=== PATIENT | female | born 1955 | race Caucasian/White ===

== ENCOUNTER 2019-01-07 11:46 | Day surgery (SDC) | payer BC ==
[2019-01-06 14:12] VITALS: BMI 20.8
[2019-01-07] MEDS ORDERED: LIDOCAINE HCL 1%, 10 MG/ML (20ML VIAL) ONE (14:06)
[2019-01-07] MEDS ORDERED: EPINEPHrine/PF 1 MG/1 ML (1:1,000) AMPULE ONE (14:06)
[2019-01-07] MEDS ORDERED: LIDOCAINE HCL/PF 2% SDV 5ML VIAL ONE (14:21)
[2019-01-07] MEDS ORDERED: fentaNYL CITRATE 250 MCG/5 ML VIAL ONE (14:21)
[2019-01-07] MEDS ORDERED: ceFAZolin SODIUM 1 GM VIAL ONE ×2 (14:21→14:46)
[2019-01-07] MEDS ORDERED: MIDAZOLAM HCL 2 MG/2 ML SINGLE DOSE VIAL ONE ×2 (14:23)
[2019-01-07] MEDS ORDERED: PROPOFOL 20 ML ONE ×2 (14:23)
[2019-01-07] MEDS ORDERED: ceFAZolin SODIUM 1 GM VIAL IVPB ONE (14:43)
[2019-01-07] MEDS ORDERED: LIDOCAINE 1%/EPI 1:100000 (20 ML MULTI DOSE VIAL) IJ ONE (14:45)
[2019-01-07] MEDS ORDERED: DEXAMETHASONE SOD PHOSPHATE 4 MG/1 ML VIAL ONE (15:08)
[2019-01-07] MEDS ORDERED: PHENYLEPHRINE HCL 10 MG/1 ML SINGLE DOSE VIAL ONE (15:52)
[2019-01-07] MEDS ORDERED: oxyCODONE HCL 5 MG TABLET PO PRN (16:18)
[2019-01-07] MEDS ORDERED: ONDANSETRON 4 MG/2 ML VIAL IVPUSH PRN (16:18)
--- NOTE | 2019-01-07 16:24 | OP ---
Operative Note - Note: Operative Date: 01/07/19 Pre-Operative Diagnosis: Acquired cheast wall deformity. Mechanical complication of breast implants. Assymettry of breast Operation: Bilateral reconstruction with other technique. SCT transfer to both breasts. Capsulotomy bilaterally implant exchange Implants: Sientra 590 and 620 Post-Operative Diagnosis: Same as Pre-op Surgeon: Dean Thomas [employer] To Door Sales Representative: Gab Rockwell Anesthesia: General Specimens Removed: bilateral breast implants Estimated Blood Loss (mls): 30
--- NOTE | 2019-01-07 16:26 | SURG ---
Surgery Schedule Checker Note Schedule Checker: Gab Rockwell PA-C Date of Service: 01/07/19 Diagnosis: Acquired cheast wall deformity. Mechanical complication of breast implants. Assymettry of breast Procedure: Bilateral reconstruction with other technique. SCT transfer to both breasts. Capsulotomy bilaterally implant exchange I was present for the entirety of the operative procedure. For further detail, please refer to operative report. Visit type - Case Type Case Type: Scheduled - New patient This patient is new to me today: Yes Date on this admission: 01/07/19
[2019-01-07] MEDS ORDERED: LACTATED RINGERS SOLUTION 1,000 ML IV SCH (16:30)
[2019-01-07] MEDS ORDERED: MEPERIDINE HCL 50 MG/ML VIAL IVPUSH ONE (16:45)
[2019-01-07 18:54] VITALS: BP 95/57; PULSE 78; TEMP 97.8
--- NOTE | 2019-01-08 16:07 | OP ---
DATE OF OPERATION: 01/07/2019 SURGEON: Aimee Thomas MD ACUTE SPECIALIST SURGEON: MACK Yip PREOPERATIVE DIAGNOSES: 1. Bilateral acquired chest wall deformities status post bilateral mastectomy. 2. Asymmetry of reconstructed chest wall. 3. Mechanical complication of breast implant. OPERATIVE PROCEDURE: 1. Right breast reconstruction utilizing other technique. 2. Left breast reconstruction utilizing other technique. 3. Capsulotomy, removal, and replacement of right breast implant. 4. Capsulotomy, removal, and replacement of left breast implant. 5. Revision reconstruction of bilateral axillary breasts. OPERATIVE INDICATION: Patient is a 63-year-old white female who was brought to the operating room for the above procedures. The patient had preoperative discussions on multiple occasions preoperatively about the procedure, risks and benefits, surgical versus nonsurgical alternatives, as well as the material complications of the procedure were discussed on multiple occasions, including today in the holding area where she was marked in a standing position with outline of each procedure which was performed, and she agreed to the planned procedure. OPERATIVE PROCEDURE IN DETAIL: Patient was taken to the operating room, and adequate induction of general anesthesia in supine position, both arms were extended and padded, Venodyne boots were placed, and attention was turned to the chest wall and abdomen. These were prepped and draped in the usual fashion for breast and reconstructive surgery. Once this was complete and timeout was called, the incisions for the mastectomy scars were injected with 1% local lidocaine anesthesia with 1:100,000 epinephrine. After allowing topical anesthesia and hemostasis, attention was turned to the incisions. A right breast incision was made in the previous mastectomy scar down through skin to the subcutaneous tissue, through the subcutaneous tissue down to the underlying capsule. I then performed a capsulotomy by incising the capsule along the course of the incision and removed the breast implant which had been present for approximately 12 years from her previous mastectomy. The implant was sent for pathologic diagnosis. The exact same procedure was carried out symmetrically on the left breast, also removing the implant and sending it for pathologic diagnosis. Once this was accomplished, attention was turned to the lower abdomen and flanks. Incisions were planned in the left and right side symmetrically and incised after topical anesthesia and hemostasis, with an incision down through the skin, through subcutaneous tissue, down to the deep underlying fascia of the rectus abdominis and oblique fascia. Tissue was then dissected from the abdominal wall and deep course of the incisions, transferred to the back table, washed, cleansed, and prepared for reconstruction. Attention was then turned back to the chest wall. The upper outer quadrant of the breast showed axillary remnants of breast tissue. An incision was made in the axillary area and carried down through the subcutaneous tissue down to underlying pectoralis major muscle. This tissue was then resected from the right and left sides, with the left side having more tissue than the right. This tissue was removed and the wounds closed with interrupted sutures and compression. Attention was then turned back to the incisions and scars. At this point an implant was chosen for the reconstruction. A Sientra style 107, 590-mL implant was placed into the left breast pocket because of asymmetry which required less volume than the right. This was placed using Thomason funnel. The left breast implant was a 620-mL high-profile Sientra style 107 implant which showed good symmetry once it was placed. These wounds were copiously irrigated with triple antibiotic solution and then closed with running 3-0 PDS suture on the deep portion of the capsule. The left breast inframammary fold capsule was elevated approximately 1.5 cm to raise the inframammary fold for symmetry. This malposition was corrected by capsulorrhaphy and replacement of the new inframammary fold. Good shape and contour was seen in the sitting position. Tissue was then transferred to the right and left breasts in the superior, medial, central, and lateral portions of each breast. This was carried out independently of each other and showed good shape and contour with correction of the defects in the subcutaneous plane. At this point, after copious irrigation, the wounds were closed in layers using 3-0 PDS suture on the deep dermis and a subcuticular suture with 4-0 Biosyn placed on each breast. All wounds were dressed sterilely after the donor site was closed with interrupted and running sutures with a Dermabond, Steri-Strip, and a compressive dressing. She was awakened, extubated, and transferred to the recovery room in satisfactory condition in a Surgi-Bra. AIMEE THOMAS M.D. MICHAEL/[id number]
--- NOTE | 2019-01-11 16:26 | PATH ---
Surgical Pathology Report Patient Name: ROSHNI CORNEJO Med. Rec. #: [id number] /Age/Gender: 1955 (Age: 63) / F Account: [id number] Location: [facility] Taken: 01/07/2019 Received: 01/10/2019 Reported: 01/11/2019 Physicians: Dean Thomas Specimen(s) Received BILATERAL REMOVED BREAST IMPLANTS Clinical History Breast cancer Final Diagnosis BREAST IMPLANTS, BILATERAL, REMOVAL: BREAST IMPLANTS (2). MACROSCOPIC DIAGNOSIS. Electronically Signed Shabana Duff M.D. Gross Description Received fresh labeled "removed bilateral breast implants," are 2 clear, rubbery, intact breast implants averaging 14 cm in diameter and 4 cm in depth. No soft tissue is present. No sections are submitted, gross only. /01/10/2019 saudi01/10/2019
== END 2019-01-07 18:54 | disposition home or self-care (01) ==
LOC: JASU-SURG 11:46
PROVIDERS: ATTEND Plastic Surgery
PROC: 0HRV0JZ Replacement of Bilateral Breast with Synthetic Substitute, Open Approach (ICD-10-PCS; 2019-01-07)
PROC: 0HPU0JZ Removal of Synthetic Substitute from Left Breast, Open Approach (ICD-10-PCS; 2019-01-07)
PROC: 0HPT0JZ Removal of Synthetic Substitute from Right Breast, Open Approach (ICD-10-PCS; 2019-01-07)
PROC: 0HRV0JZ Replacement of Bilateral Breast with Synthetic Substitute, Open Approach (ICD-10-PCS; 2019-01-07)
PROC: 0HRV07Z Replacement of Bilateral Breast with Autologous Tissue Substitute, Open Approach (ICD-10-PCS; principal; 2019-01-07 13:45)
PROC: 0HNV0ZZ Release Bilateral Breast, Open Approach (ICD-10-PCS; 2019-01-07 13:45)
DX: M95.4 Acquired deformity of chest and rib (principal); Z90.13 Acquired absence of bilateral breasts and nipples; N65.1 Disproportion of reconstructed breast; T85.41XA Breakdown (mechanical) of breast prosthesis and implant, initial encounter; Y83.8 Other surgical procedures as the cause of abnormal reaction of the patient, or of later complication, without mention of misadventure at the time of the procedure; Y92.89 Other specified places as the place of occurrence of the external cause
CPT/HCPCS: 88300-TC; 94760